=== PATIENT | female | born 1955 | race Caucasian/White ===

== ENCOUNTER 2025-02-04 10:25 | Outpatient (AMB) | payer MEDICARE, SELFPAY ==
--- NOTE | 2025-02-04 10:31 | MHC.PC.OV ---
Vital Signs 02/04/25 10:45 Height 5 ft 3 in Weight 125 lb 8 oz BMI 22.2 BP 140/84 H Blood Pressure Location Lt brachial Position Sitting Pulse 68 Pulse Source Pulse Oximeter Temp 98.6 F Temp Source Temporal Artery Scan Pulse Oximetry (%) 98 Oxygen Delivery Method Room Air Intake Visit Reasons: New Appt New Patient requesitng an PE Intake Note: Mandi presents in the office today to establish care. Allergies perfume Allergy (Verified 02/04/25 10:35) Rash Tobacco use date assessed: 02/04/25 Fall risk assessment: No Falls in past year Last assessed Fall Risk: 02/04/25 Dental Screening Dental Screen Date: 02/04/25 Did you have a dental visit in the last 12 months?: Yes Did you have a dental problem in the last 6 months where you did not have access to dental care?: No Was dental information given to patient?: Patient has dentist HPI HPI Comments History of Present Illness Details This is a 69-year-old female with a past medical history of hyperlipidemia, hypertension and tobacco use presenting to establish care. Hypertension-previously treated with amlodipine 10 mg daily. She ran out of the medication 3 weeks ago. Her blood pressure today is 140/84. Denies headaches, chest pain, dizziness or shortness of breath. Hyperlipidemia-treated with atorvastatin 20 mg daily. No recent lipid profile. Hypercalcemia-10.7 on labs from [place] May 2024. She takes vitamin D3 daily and calcium daily. Tobacco use-smokes 1-1/2 packs per day. She has gone through counseling groups, seen addiction Medicine and tried medications including Chantix which she currently has a home. She is not currently interested in quitting. We also discussed baseline chest x-ray and LDCT, but she is not interested in screening tests at this time. Patient had a DEXA scan in September or October 2024, and she was never told the results. We have requested it. She endorses a history of osteoporosis. Last mammogram normal October 2024. She had her last colonoscopy 01/11/2023 at [facility]. She says it was normal, and she was instructed to repeat it in 10 years. Patient said she saw her eye doctor recently about some vision issues that were occurring once per week over the winter. For 1-5 minutes it felt like 1 of her eyes was positioned half an inch above the other, but when she shut each eye individually her vision was fine. She had no other symptoms or neurologic deficits associated with this, and episodes always self resolved. She has not had any episodes since November. She had a flu shot in May 2024. She is up-to-date with COVID-19 vaccine, per patient. Patient reports she had a tetanus shot in 2017. She also says she is up-to-date with the shingles vaccine and pneumonia vaccine. She requests a screening for hepatitis-C since it was listed on her health maintenance plan from [facility]. The patient takes citalopram 20 mg daily for depression. This was started after she lost her . Declines annual gynecologic exam. ROS: Constitutional: No unexplained weight loss, fever, chills, fatigue or night sweats. Eyes: No blurry vision, vision loss, double vision, eye pain, eye redness, eye discharge. See HPI ENT: No hearing loss, sneezing, congestion, runny nose or sore throat. Respiratory: No shortness of breath, cough or sputum production. Cardiovascular: No chest pain, chest pressure or chest discomfort. No palpitations or pedal edema. Gastrointestinal: No anorexia, nausea, vomiting or diarrhea. No abdominal pain or blood in stool. Neurologic: No headache, dizziness, syncope, unilateral weakness, ataxia, numbness or tingling in the extremities. No memory difficulties or changes to speech. Hematologic/Lymphatics: No bleeding or bruising. No painful lymph nodes. Endocrine: No cold or heat intolerance. No polyuria or polydipsia. Psychiatric: No depression or anxiety. Physical exam: Constitutional: Alert, in no distress. Head: Normocephalic. Eyes: Pupils are equal, round and reactive to light. Extraocular muscles intact. Ear, Nose and Throat: Canals clear. TMs normal. Normal nasal mucosa. No nasal discharge. No oral lesions. Neck: Supple, Full range of motion. No lymphadenopathy. Respiratory: Clear to auscultation. Cardiovascular: S1 S2 regular. No murmurs. No carotid bruits. Gastrointestinal: Abdomen soft, non-tender, non-distended. Normal bowel sounds. No palpable masses. Neurologic:?Alert and oriented x 3, no focal deficits observed, CN 2-12 intact, [id number]-[id number] normal, sensation equal and symmetric, strength UE and LE 5/5 bilaterally, reflexes equal and symmetric.? Normal gait.? Patient able to heel walk, toe walk and walk heel-to-toe across the floor.? No pronator drift.? Negative Romberg. Musculoskeletal: No gross deformities. Normal range of motion. Extremities: Warm and well perfused. No clubbing, cyanosis or edema. Psychiatric: Normal mood and affect [facility] Medical History (Updated 02/04/25 @ 13:50 by RIGOBERTO Eastman) Depression Osteoporosis Transient vision disturbance Tobacco use disorder Hyperlipidemia Hypertension Hypercalcemia Family History (Updated 02/04/25 @ 10:45 by Emely Mccrary MA) Father Substance abuse Alcoholism Maternal Uncle Alcoholism Social History (Updated 02/04/25 @ 10:45 by Emely Mccrary MA) Housing: House Alcohol intake: current Patient Tobacco Use Status: Current everyday Tobacco user Tobacco use type: Cigarette Cigarette Packs Per Day: 2 Cigarettes Per Day: 30 Years Smoked: 50 e-Cigarette/Vaping Use: Never Used Second Hand Smoke Exposure: Yes service: No Current occupational status: retired Current occupational exposures/hazards: No Cognitive needs: No Hearing needs: No Vision needs: No Questionnaire PHQ-9 Over the last 2 weeks, how often have you been bothered by any of the following problems? 1. Little interest or pleasure in doing things: not at all 2. Feeling down, depressed, or hopeless: several days 3. Trouble falling or staying asleep, or sleeping too much: not at all 4. Feeling tired or having little energy: not at all 5. Poor appetite or overeating: not at all 6. Feeling bad about yourself - or that you are a failure or have let yourself or your family down: not at all 7. Trouble concentrating on things, such as reading the newspaper or watching television: not at all 8. Moving or speaking so slowly that other people could have noticed. Or the opposite - being so fidgety or restless that you have been moving around a lot more than usual: not at all 9. Thoughts that you would be better off or of hurting yourself in some way: not at all Total score: 1 Depression Screening Interpretation: Negative Depression Screening Done: Yes 92742 - PHQ-9 Billing: Yes Source: Developed by Drs. Sonny Valentin, ShalondaRodriguez Ahmadi and colleagues, with an educational yani from [employer]. Thrive Questionnaire Date Thrive assessed: 02/04/25 I am a: Patient What is your living situation today?: I have a steady place to live Within the past 12 months, did the food you bought not last and you didn't have the money to get more?: Never true Within the past 12 months, did you worry whether your food would run out before you got money to buy more?: Never true Do you have trouble paying for medicines?: No Do you have trouble getting transportation to medical appointments?: No Do you have trouble paying your heating and electricity bill?: No Do you have trouble taking care of your child, family member or friend?: No Do you have trouble with day-to-day activities such as bathing, preparing meals, shopping, managing finances, etc.?: No Are you currently unemployed and looking for a job?: No Are you interested in more education?: No Please select the resources that you would like help with: None Currently or been in a relationship where the following occur: No concerns reported THRIVE Score: 0 AUDIT C Alcohol Use Questionnaire (AUDIT-C) 1. How often do you have a drink containing alcohol?: 2-4 times a month 2. How many drinks containing alcohol do you have on a typical day when you are drinking?: 5 or 6 3. How often do you have six or more drinks on one occasion?: Less than monthly Total Score: 5 Score Reviewed/Action Taken: No DUANE-7 AMB Questionnaire DUANE-7 Date DUANE - 7 assessed: 02/04/25 Feeling nervous, anxious, or on edge: 1 = Several days Not being able to stop or control worryin = Not at all Worrying too much about different things: 1 = Several days Trouble relaxin = Not at all Being so restless that it is hard to sit still: 0 = Not at all Becoming easily annoyed or irritable: 0 = Not at all Feeling afraid as if something awful might happen: 1 = Several days Total DUANE-7 score (0-4 normal; 5-9 mild; 10-14 moderate; 15-21 severe): 3 Source: Developed by Shalonda Roche Kurt Kroenke and colleagues, with an educational yani from [employer]. DUANE-7 Assessment Billing DUANE-7 Assessment Tool: DUANE-7 Assessment 12215 Physical exam (Primary Care) Vital Signs: Last Vital Signs Temp 98.6 F 02/04/25 10:45 Pulse 68 02/04/25 10:45 BP 140/84 H 02/04/25 10:45 Pulse Ox 98 02/04/25 10:45 Oxygen Delivery Method Room Air 02/04/25 10:45 BMI result Body Mass Index 22.2 Tobacco/Smoking Status: Tobacco use Status Tobacco use date assessed 02/04/25 02/04/25 10:49 Patient Tobacco Use Status Current everyday Tobacco 02/04/25 10:49 Tobacco use type Cigarette 02/04/25 10:49 e-Cigarette/Vaping Use Never Used 02/04/25 10:49 PHQ-9: PHQ-9 Score PHQ-9: Total score 1 02/04/25 10:52 Depression Screening Interpretation: Negative Thrive Assessment: Date of Thrive Assessment Date Thrive assessed 02/04/25 02/04/25 10:34 Currently or been in a relationship where the following occur: No concerns reported Coding Level of Care Code New Pt Level 4 (55176) Complex EM visit Add On G2211 Diagnoses Hypercalcemia E83.52 Hypertension I10 Hyperlipidemia E78.5 Tobacco use disorder F17.200 Transient vision disturbance H53.9 Osteoporosis M81.0 Depression F32.A Additional Codes DUANE-7 Assessment Billing - UDANE-7 Assessment Tool: DUANE-7 Assessment 35633 ([id number]) PHQ-9 - 34447 - PHQ-9 Billing: Yes ([id number]) Assessment & Plan Assessment & Plan (1) Hypercalcemia: Code(s): E83.52 - Hypercalcemia Category: Medical Plan: Check PTH, vitamin-D and calcium. (2) Hypertension: Code(s): I10 - Essential (primary) hypertension Category: Medical Plan: Resume amlodipine at 5 mg daily. Recheck in 4 weeks. Recommended low-sodium diet and avoidance of caffeine. Smoking cessation advised. Check renal function and urinalysis. (3) Hyperlipidemia: Code(s): E78.5 - Hyperlipidemia, unspecified Category: Medical Plan: Continue atorvastatin and check lipid profile. (4) Tobacco use disorder: Code(s): F17.200 - Nicotine dependence, unspecified, uncomplicated Category: Medical Plan: Reviewed the risks of tobacco use disorder. She is not interested in cessation at this time though she has attempted it multiple times in the past. She is not interested in baseline chest x-ray or LDCT. (5) Transient vision disturbance: Code(s): H53.9 - Unspecified visual disturbance Category: Medical Plan: She has had no further episodes since November but I recommended an MRI of the brain since she did have them repeatedly over the winter. She saw her eye doctor and no cause was determined. Patient declines imaging at this time. If she has another episode she will contact the office. Warning signs warranting ER evaluation reviewed with the patient. (6) Osteoporosis: Code(s): M81.0 - Age-related osteoporosis without current pathological fracture Category: Medical Plan: I have requested the results of her bone density exam. Smoking cessation advised. Continue weight-bearing activity. She walks her dog frequently. She is on calcium and vitamin-D. (7) Depression: Code(s): F32.A - Depression, unspecified Category: Medical Plan: Stable. Continue citalopram. Plan Follow up in 4 weeks. Orders: Orders Comprehensive Met. Panel Today E78.5 - Hyperlipidemia, unspecified, E83.52 - Hypercalcemia, F17.200 - Nicotine dependence, unspecified, uncomplicated, I10 - Essential (primary) hypertension Complete Blood Count no Diff Today E78.5 - Hyperlipidemia, unspecified, E83.52 - Hypercalcemia, F17.200 - Nicotine dependence, unspecified, uncomplicated, I10 - Essential (primary) hypertension UA w Microscopic Today R39.9 - Unspecified symptoms and signs involving the genitourinary system Lipid Panel Today E78.5 - Hyperlipidemia, unspecified, E83.52 - Hypercalcemia, F17.200 - Nicotine dependence, unspecified, uncomplicated, I10 - Essential (primary) hypertension Vitamin D 25-OH (D2 and D3) Today E78.5 - Hyperlipidemia, unspecified, E83.52 - Hypercalcemia, F17.200 - Nicotine dependence, unspecified, uncomplicated, I10 - Essential (primary) hypertension, M85.80 - Other specified disorders of bone density and structure, unspecified site Parathyroid Hormone Intact Today E78.5 - Hyperlipidemia, unspecified, E83.52 - Hypercalcemia, F17.200 - Nicotine dependence, unspecified, uncomplicated, I10 - Essential (primary) hypertension Hepatitis C Antibody Today Z20.2 - Contact with and (suspected) exposure to infections with a predominantly sexual mode of transmission Medications: New atorvastatin 20 mg PO DAILY 90 tabs 3RF amlodipine 5 mg PO DAILY 90 tabs 3RF
[2025-02-04 10:45] VITALS: BP 140/84; PULSE 68; TEMP 37; O2SAT 98; BMI 22.2
--- OUTSIDE RECORDS SUMMARY | 2025-02-04 10:57 | XMS_ITS | Encounter Summary ---
Author Organization [facility] Address [address] [place] [address] Care Team Providers Care Rouge Presser Name Role Phone ChildAlessandro MD Primary Care Provider [phone] Encounter Details Date Type Department Care Team (Latest Contact Info) Description 07/22/2020 Transcribe Orders [facility] Professional Office Building Lab Draw Site [address] [place] [address] Child, Alessandro Guy MD [address] [place] [phone] (Work) Exposure to SARS-associated coronavirus (Primary Dx) Social History Tobacco Use Types Packs/Day Years Used Date Smoking Tobacco: Every Day Cigarettes Smokeless Tobacco: Never Comments::1/2 PPD Alcohol Use Standard Drinks/Week Comments Not Currently 0 (1 standard drink = 0.6 oz pur e alcohol) Comments No Sex and Gender Information Value Date Recorded Sex Assigned at Female 09/28/2021 2:46 PM EST Legal Sex Female 12:25 AM EDT Gender Identity Female 09/28/2021 2:46 PM EST Sexual Orientation Straight 09/28/2021 2: 46 PM EST documented as of this encounter Plan of Treatment Not on file documented as of this encounter Results * Due to [place] state law, this organization might not be sharing negative HIV tests. * COVID-19 PCR, AIRLINE RESERVATION AGENT/OP/Saliva (07/22/2020 2:16 PM EST) SARS CoV 2 RNA, RT PCR Not Detected Not Detected 07/23/2020 10:27 AM EST [facility] Comment:A Not Detected (Nega tive) test result is indicative of the absence of SARS-CoV-2 RNA at the level of LoD (Limit of Detection). A negative result does not rule out the possibility of COVID-19 and should not be used as the sole basis for treatment or patient management decisions. If COVID-19 is still suspected, based on exposure history together with other clinical findings, re-testing should be considered. Saliva Mouth region structure / Unknown Non-Blood Collection / Unknown 07/22/2020 2:16 PM EST 07/22/2020 2:17 PM EST Narrative [facility] - 07/23/2020 10:27 AM EST These tests were developed, validated, and their performance characteristics determined by the [facility] Laboratory at [facility] under CLIA [id number]. They have not been cleared or approved by the U.S. Food and Drug Administration (FDA). FDA Policy for Diagnostic Tests for Coronavirus Disease-2019 during the Public Health Emergency issued November 30, 2019, is followed. us Alessandro Russo MD LAB BODY FLUIDS AND STOOLS OR DERABLES Final Result [facility] [address] [place] [address], documented in this encounter Visit Diagnoses Diagnosis Exposure to SARS-associated coronavirus- Primary documented in this encounter Additional Health Concerns Infection Onset Date Last Indicated Resolved Time COVID-19 - Suspected infection 07/22/2020 07/22/2020 07/23/2020 10:27 AM EST documented as of this encounter Care Teams Rouge Presser Relationship Specialty Start Date End Date Alessandro Russo MD [phone] (Work) PCP - General 04/03/17 documented as of this encounter
--- OUTSIDE RECORDS SUMMARY | 2025-02-04 10:57 | XMS_ITS | Encounter Summary ---
Author Organization [facility] Address [address] [place] [address] Care Team Providers Care Administrative Asst Name Role Phone ChildAlessandro MD Primary Care Provider [phone] Encounter Details Date Type Department Care Team (Late st Contact Info) Description 11/01/2022 Community Orders [facility] EpicCare Link [address] [place] [address] Child, Alessandro Guy MD [address] [place] [phone] (Work) Bilateral hip pain (Primary Dx) Social History Tobacco Use Types [...] of this encounter Results * Due to [place] state law, this organization might not be sharing negative HIV tests. * X-Ray Lumbar Spine 2 or 3 Views (11/01/2022 11:27 AM EST) Anatomical Region Laterality Modality Spine, L-spine Computed Radiogr aphy 11/02/2022 1:24 PM EST Impressions 11/02/2022 1:49 PM EST Lumbar spine: Severe left convex curvature. Moderate to severe multilevel degenerative disc disease and lower lumbar facet arthropathy. Osteopenia. ??Chronic appearing L1 superior endplate compression fracture. Pelvis/hips: Mild osteoarthritis of the hips. Mild degenerative arthropathy of the pubic symphysis and sacroiliac joints. No visible fracture. ??Unremarkable soft tissues. If this radiology report contains a blank impression section, it is an incomplete radiology report. ??Please contact the interpreting radiologist or applicable radiology division as soon as possible to obtain the completed interpretation. ? Workstation ID: [id number] Narrative 11/02/2022 1:49 PM EST COMPARISON: No pertinent prior studies available at time of dictation. FINDINGS AND Resulting Agency Comment [id number] Procedure Note Neville Yadav MD - 11/02/2022 COMPARISON: No pertinent prior studies available at time of dictation. FINDINGS AND IMPRESSION: Lumbar spine: Severe left convex curvature. Moderate to severe multilevel degenerative disc disease and lower lumbarfacet arthropathy. Osteopenia. Chronic appearing L1 superior endplate compressionfracture. Pelvis/hips: Mild osteoarthritis of the hips. Mild degenerative arthropathy of the pubic symphysis and sacroiliacjoints. No visible fracture. Unremarkable soft tissues. If this radiology report contains a blank impression section, it is anincomplete radiology report. Please contact the interpreting radiologistor applicable radiology division as soon as possible to obtain thecompleted interpretation. Workstation ID: [id number] Alessandro Russo MD IMG XR PROCEDURES Final Resul t documented in this encounter Visit Diagnoses Diagnosis Bilateral hip pain- Primary Pain in joint, pelvic region and thigh Bilateral hip pain Pain in joint, pelvic region and thigh documented in this encounter Care Teams Administrative Asst Relationship Specialty Start Date End Date Alessandro Russo MD [phone] (Work) PCP - General 04/03/17 documented as of this encounter
--- OUTSIDE RECORDS SUMMARY | 2025-02-04 10:57 | XMS_ITS | Encounter Summary ---
Author Organization [facility] Address [address] [place] [address] Care Team Providers Care Pin Chaser Name Role Phone Alessandro Russo MD Primary Care Provider [phone] Encounter Details Date Type Department Care Team (Late st Contact Info) Description 08/06/2023 Community Orders [facility] EpicCare Link [address] [place] [address] Alessandro Russo MD [address] [place] [phone] (Work) Screening mammogram for breast cancer (Primary Dx) Social History Tobacco Use Types [...] as of this encounter Plan of Treatment Scheduled Orders Name Type Priority Associated Diagnoses Orde r Schedule TORSTEN Bilateral Screening Digital Mammogram With [facility] Routine Screening mammogram for breast cancer Expected: 04/10/2024, Expires: 08/20/2025 documented as of this encounter Visit Diagnoses Diagnosis Screening mammogram for breast cancer- Primary documented in this encounter Care Teams Pin Chaser Relationship Specialty Start Date End Date Alessandro Russo MD [phone] (Work) PCP - General 04/03/17 documented as of this encounter
--- OUTSIDE RECORDS SUMMARY | 2025-02-04 10:57 | XMS_ITS | Encounter Summary ---
Author Organization [facility] Address [address] [place] [address] Care Team Providers Care Enlisted Advisor Name Role Phone Alessandro Russo MD Primary Care Provider [phone] Encounter Details Date Type Department Care Team (Late st Contact Info) Description 02/26/2022 Community Orders [facility] EpicCare Link [address] [place] [address] Alessandro Russo MD [address] [place] [phone]) Screening mammogram for breast [...] on file documented as of this encounter Visit Diagnoses Diagnosis Screening mammogram for breast cancer- Primary documented in this encounter Care Teams Enlisted Advisor Relationship Specialty Start Date End Date Alessandro Russo MD [phone] (Work) PCP - General 04/03/17 documented as of this encounter
--- OUTSIDE RECORDS SUMMARY | 2025-02-04 10:57 | XMS_ITS | Encounter Summary ---
Author Organization [facility] Address [address] [place] [address] Care Team Providers Care Mess Attendant Name Role Phone Alessandro Russo MD Primary Care Provider [phone] Encounter Details Date Type Department Care Team (Late st Contact Info) Description 04/16/2023 Community Orders [facility] EpicCare Link [address] [place] [address] Alessandro Russo MD [address] [place] [phone]) Screening mammogram for breast [...] Routine Screening mammogram for breast cancer Expected: 04/16/2024, Expires: 04/30/2025 documented as of this encounter Visit Diagnoses Diagnosis Screening mammogram for breast cancer- Primary documented in this encounter Care Teams Mess Attendant Relationship Specialty Start Date End Date Alessandro Russo MD [phone] (Work) PCP - General 04/03/17 documented as of this encounter
--- OUTSIDE RECORDS SUMMARY | 2025-02-04 10:57 | XMS_ITS | Referral Summary ---
Author Organization [facility] Address [address] [place] [address] Care Team Providers Care Gasket Supervisor Name Role Phone Child, Alessandro Guy Primary Care Provider [phone] Allergies No known active allergies Medications amLODIPine (NORVASC) 10 mg tablet Take 10 mg by mouth daily. 8 Active cyclobenzaprine (FLEXERIL) 5 mg tablet Take 1 tablet (5 mg total) by mouth 3 times a day as needed for muscle spasms. 4 tablet 3 Active lidocaine (LIDODERM) 5% patch Apply 1 patch topically to the affected area once a day. Remove and discard patch within 12 hours or as directed. 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 Immunizations Immunization Administration Dates Next Due Covid-19, Pfizer, mRNA, Stearns valent, PF 30 mcg/0.3 mL dose (for ages 12 and older) 12/30/2020,12/02/2020 Social History Tobacco Use Types Packs/Day Years [...] Orientation Straight 09/28/2021 2: 46 PM EST Last Filed Vital Signs Vital Sign Reading Time Taken Comments Blood Pressure 160/86 10/01/2022 11:19 AM EST Pulse 74 10/01/2022 11:19 AM EST Temperature 36.3 ??C (97.3 ??F) 10/01/2022 11:[address] Respiratory Rate 20 10/01/2022 11:19 AM EST Oxygen Saturation 98% 10/01/2022 11:19 AM EST Inhaled Oxygen Concentration - - Weight 59.9 kg (132 lb) 10/01/2022 11:19 AM EST Height 163.8 cm (5' 4.5 ) 04/08/2020 9:01 AM EDT Body Mass Index 22.31 04/08/2020 9:01 AM EDT Plan of Treatment Not on file Procedures * Due to [place] [employer] law, this organization might not be sharing negative HIV tests. Procedure Name Priority Date/Time Associated Diagnosis Comments TORTSEN BILATERAL SCREENING DIGITAL MAMMOGRAM WITH MASON Routine 04/09/2023 1:44 PM EDT Breast cancer screening by mammogram DEXA BONE DENSITY AXIAL Routine 08/02/2022 11:33 AM EST Other osteoporosis, unspecified pathological fracture presence Post-menopausal from Last 3 Months or Most Recently Relevant to Health Maintenance Results * Due to [place] Doubl[employer] law, this organization might not be sharing negative HIV tests. * TORSTEN Bilateral Screening Digital Mammogram With Mason (04/09/2023 1:44 PM EDT) Anatomical Region Laterality Modality Breast Bilateral Mammography Narrative 04/13/2023 2:03 PM EDT EXAMINATION TORSTEN Bilateral Screening Digital Mammogram With Mason. INDICATION Screening. CC and MLO views were obtained. R2 CAD was used in the interpretation of this study. COMPARISON Multiple priors in PACS. Bilateral Breast Findings: The breasts are heterogeneously dense, which may obscure small masses. No suspicious dominant masses, unexplained areas of architectural distortion or suspicious grouped calcifications are seen in either breast. IMPRESSION No specific evidence of malignancy. BI-RADS?? ATLAS category (overall): 1 - Negative MANAGEMENT Recommend annual screening mammography. The patient was entered into a reminder system with a target date for their next mammogram. If this radiology report contains a blank impression section, it is an incomplete radiology report. ??Please contact the interpreting radiologist or applicable radiology division as soon as possible to obtain the completed interpretation. us Alessandro Russo MD IMSteve BI PROCEDURES Final Resul t * Dexa bone density Axial (08/02/2022 11:33 AM EST) Anatomical Region Laterality Modality Hip, L-spine Bone Densitometr y 08/02/2022 11:4 6 AM EST Impressions 08/02/2022 11:47 AM EST This patient has osteoporosis. Compared to the prior study, there has beenno changein the BMD/T value of the spine andan increasein the BMD /T value of the total hip. Consider bone health evaluation and management by Endocrinology or Rheumatology. Thank you for the courtesy of this referral. Yared Shrestha MD, PhD If this radiology report contains a blank impression section, it is an incomplete radiology report. ??Please contact the interpreting radiologist or applicable radiology division as soon as possible to obtain the completed interpretation. ? Workstation ID: [id number] Narrative 08/02/2022 11:47 AM EST EXAM: ??BONE MINERAL DENSITY INDICATION: ??67year old post-menopausal female with estrogen deficiency. PROCEDURE: The bone mineral density (BMD) of the spine and proximal left femur was determined using an external X-ray source Hologic. COMPARISON: Prior BMD of 11/11/2012 FINDINGS: L1-L4: ??BMD 0.940gm/cm2 ? T-Score -1.0 ?Z-score 1.0 ? Prior BMD(T) 0.928 Femoral neck: ??BMD 0.410gm/cm2 ?T-Score -4.0 ? Z-score: -2.3 ? Prior BMD(T) NA Total hip: ??BMD 0.742gm/cm2 ?T-Score -1.6 ?Z-score -0.2 ? Prior BMD(T) 0.665 The World Health Organization (WHO) defines osteoporosis (as studied in post-menopausal women) as a T value of (-)2.5 or less at any site. ??Osteopenia is defined by a T value between (-)1.0 and (-)2.4. In general, it is recommended that patients receive approximately 1000 mg of calcium daily, either from dairy products or supplements (including multiple vitamin). Patients should consider supplementing with vitamin D. Vitamin D recommendations should be discussed with Health Care Provider and measurement of vitamin D levels should be considered. Careful weight-bearing exercise is also useful in maintaining bone mass and to help protect against falls. Based on our precision data, a change of 1.5% in the spine or total hip is significant in the individual patient. Resulting Agency Comment [id number] Procedure Note Yared Shrestha MD PhD - 08/02/2022 EXAM: BONE MINERAL DENSITY INDICATION: 67year old post-menopausal female with estrogen deficiency. PROCEDURE: The bone mineral density (BMD) of the spine and proximal leftfemur was determined using an external X-ray source Hologic. COMPARISON: Prior BMD of 11/11/2012 FINDINGS: L1-L4: BMD 0.940gm/cm2 T-Score -1.0 Z-score 1.0 Prior BMD(T)0.928 Femoral neck: BMD 0.410gm/cm2 T-Score -4.0 Z-score: -2.3 PriorBMD(T) NA Total hip: BMD 0.742gm/cm2 T-Score -1.6 Z-score -0.2 PriorBMD(T) 0.665 The World Health Organization (WHO) defines osteoporosis (as studied inpost-menopausal women) as a T value of (-)2.5 or less at any site.Osteopenia is defined by a T value between (-)1.0 and (-)2.4. In general, it is recommended that patients receive approximately 1000 mgof calcium daily, either from dairy products or supplements (includingmultiple vitamin). Patients should consider supplementing with vitamin D.Vitamin D recommendations should be discussed with Health Care Providerand measurement of vitamin D levels should be considered. Carefulweight-bearing exercise is also useful in maintaining bone mass and tohelp protect against falls. Based on our precision data, a change of 1.5% in the spine or total hip issignificant in the individual patient. IMPRESSION: This patient has osteoporosis. Compared to the prior study, there has beenno changein the BMD/T value ofthe spine andan increasein the BMD /T value of the total hip. Consider bone health evaluation and management by Endocrinology orRheumatology. Thank you for the courtesy of this referral. Yared Shrestha MD, PhD If this radiology report contains a blank impression section, it is anincomplete radiology report. Please contact the interpreting radiologistor applicable radiology division as soon as possible to obtain thecompleted interpretation. Workstation ID: [id number] Alessandro Russo MD IMG DXA PROCEDURES Final Resu lt from Last 3 Months or Most Recently Relevant to Health Maintenance Insurance MEDICARE Advance Directives Documents on File Type Date Recorded Patient Winch Operator Expl anation Health Care Proxy 08/21/2021 11:12 AM 07-17 Care Teams Gasket Supervisor Relationship Specialty Start Date End Date Child, Alessandro Guy MD [phone] (Work) [facility] - General 04/03/17
--- OUTSIDE RECORDS SUMMARY | 2025-02-04 10:57 | XMS_ITS | Clinical Summary ---
Author Organization [facility] Address [address] [place] [address] Care Team Providers Care Stock Holder Name Role Phone Child, Alessandro Guy Primary Care Provider [phone] Allergies No known active allergies Medications amLODIPine [...] Administration Dates Next Due Covid-19, Pfizer, mRNA, Yancey valent, PF 30 mcg/0.3 mL dose (for [...] 04/08/2020 9:01 AM EDT Plan of Treatment Health Maintenance Due Date Last Done Comments Cologuard 1954 Colon Cancer Screening 1954 Colonoscopy 1954 FOBT / Fit Test 1954 Hepatitis C Screening 1954 Sigmoidoscopy 1954 Medicare AWV 1955 Pneumococcal Vaccine: 50+ Years (1 of 2 - PCV) 1973 DTaP,Tdap,and Td Vaccines (1 - Tdap) 1976 CT Lung Cancer Screening (Baseline) 2004 Zoster Vaccines (2 of 3) 03/04/2015 01/07/2015 COVID-19 Vaccine (5 - season) 2024 04/13/2022, 09/05/2021, 12/30/2020, Additional history exists Alcohol/Substance Use Screening 09/16/2024 Depression Screening and Follow-Up 09/16/2024 Health Care Proxy Review 09/16/2024 Social Drivers of Health Annual Screening 09/16/2024 Mammogram 04/09/2025 04/09/2023, 03/17, 07/04/2020, Additional history exists Influenza Vaccine (Season Ended) 2025 06/26/2022, 07/08/2021, 07/11/2019, Additional history exists RSV Vaccine (60+ years old and patients) (1 - 1-dose 75+ series) 2029 Osteoporosis Screening Completed 2, 05/28/2019, , Additional history exists Hepatitis B Vaccines Aged Out No long er eligible based on patient's age to complete this topic Procedures * Due to [facility] law, this organization might not be sharing negative HIV tests. Procedure Name Priority Date/Time Associated Diagnosis Comments TORSTEN BILATERAL SCREENING DIGITAL MAMMOGRAM WITH MASON Routine 04/09/2023 1:44 PM EDT Breast cancer screening by mammogram DEXA BONE DENSITY AXIAL Routine 08/02/2022 11:33 AM EST Other osteoporosis, unspecified pathological fracture presence Post-menopausal from Last 3 Months or Most Recently Relevant to Health Maintenance Results * Due to [place] [employer] law, this organization might not be sharing [...] as possible to obtain the completed interpretation. Alessandro Russo MD IMSteve BI PROCEDURES Final [...] obtain the completed interpretation. ? Workstation ID: [id number] Narrative 08/02/2022 11:47 AM EST EXAM: ??BONE [...] in the individual patient. Resulting Agency Comment [id number] Procedure Note Yared Shrestha MD PhD - [...] possible to obtain thecompleted interpretation. Workstation ID: [id number] Alessandro Russo MD IMG DXA PROCEDURES Final Resu lt from Last 3 Months or Most Recently Relevant to Health Maintenance Insurance MEDICARE Advance Directives Documents on File Type Date Recorded Patient Computing Tutor Expl anation Health Care Proxy 08/21/2021 11:12 AM 07-17 Care Teams Stock Holder Relationship Specialty Start Date End Date Karan, Alessandro Guy MD [phone] (Work) PCP - General 04/03/17
== END 2025-02-04 11:32 | disposition home or self-care (01) ==
LOC: HO.HMCFM 10:26
PROVIDERS: PCP Physician Assistant Medical; Visit Provider Physician Assistant Medical
DX: E83.52 Hypercalcemia (principal); I10 Essential (primary) hypertension; E78.5 Hyperlipidemia, unspecified; F17.200 Nicotine dependence, unspecified, uncomplicated; H53.9 Unspecified visual disturbance; M81.0 Age-related osteoporosis without current pathological fracture; F32.A Depression, unspecified

== ENCOUNTER → 2025-02-04 10:25 | Outpatient (BNVA) | payer MEDICARE, SELFPAY | PROVIDERS: PCP Physician Assistant Medical; Visit Provider Physician Assistant Medical | DX: E83.52 Hypercalcemia (principal); I10 Essential (primary) hypertension; E78.5 Hyperlipidemia, unspecified; H53.9 Unspecified visual disturbance; M81.0 Age-related osteoporosis without current pathological fracture; F32.A Depression, unspecified; F17.200 Nicotine dependence, unspecified, uncomplicated; Z79.899 Other long term (current) drug therapy | CPT/HCPCS: 96127; 99202 ==

== ENCOUNTER 2025-03-02 10:33 | Outpatient (REF) | payer MEDICARE, SELFPAY ==
--- OUTSIDE RECORDS SUMMARY | 2025-03-02 12:05 | XMS_ITS | Encounter Summary ---
Author Organization [facility] Address [address] [place] [address] Care Team Providers Care Marble And Granite Polisher Name Role Phone ChildAlessandro MD Primary Care Provider [phone] Encounter Details Date Type Department Care Team (Late st Contact Info) Description 11/01/2022 Community Orders [facility] EpicCare Link [address] [place] [address] Child, Alessandro Guy MD [address] [place] [address] [phone] (Work) Bilateral hip pain (Primary [...] of this encounter Results * Due to [place] state law, this organization might not be [...] obtain the completed interpretation. ? Workstation ID: [id number] Narrative 11/02/2022 1:49 PM EST COMPARISON: No pertinent prior studies available at time of dictation. FINDINGS AND Resulting Agency Comment [id number] Procedure Note Neville Yadav MD - 11/02/2022 [...] possible to obtain thecompleted interpretation. Workstation ID: [id number] Alessandro Russo MD IMG XR PROCEDURES Final Resul t documented in this encounter Visit Diagnoses Diagnosis Bilateral hip pain- Primary Pain in joint, pelvic region and thigh Bilateral hip pain Pain in joint, pelvic region and thigh documented in this encounter Care Teams Marble And Granite Polisher Relationship Specialty Start Date End Date Alessandro Russo MD [phone] (Work) PCP - General 04/03/17 documented as of this encounter
[2025-03-02 14:13] LABS: Appearance Urine Clear; Color Urine Yellow; Glucose Urine UA Negative (Negative); Leukocyte Esterase Urine Negative (Negative); Nitrite Urine Negative (Negative); PH 7.5 (5.0-9.0); Specific Gravity - Urine <= 1.005 (1.005-1.025); Urine Blood Negative (Negative); Urine Ketones Negative (Negative); Urine Protein Negative (Neg-Trace)
[2025-03-02 14:15] LABS: Bacteria Urine None Seen (None Seen); Hyaline Casts Urine 0-2 /LPF (0-2); RBC Urine 0-2 /HPF (0-2); Squamous Epithelial Cell Urine 0-2 /HPF (0-2); WBC Urine 0-5 /HPF (0-5)
[2025-03-02 14:34] LABS: Hematocrit 38.5 % (37.0-47.0); Hemoglobin 12.7 g/dl (12.0-16.0); Mean Corpuscular Hemoglobin 30.1 pg (27.0-33.0); Mean Corpuscular Volume 91.2 fL (80.0-98.0); Mean Platelet Volume 10.8 fL (9.4-12.3); Platelet Count 230 X10*3/uL (160-400); Red Blood Count 4.22 X10*6/uL (4.20-5.50); Red Cell Distribution Width 13.3 % (11.0-16.0); White Blood Count 6.7 X10*3/uL (4.8-10.8)
[2025-03-02 14:52] LABS: Alanine Aminotransferase 20 U/L (0-31); Albumin Level 4.5 g/dL (3.5-5.0); Alkaline Phosphatase 47 U/L (39-117); Anion Gap 10 (12-20); Aspartate Amino Transferase 23 U/L (5-31); Bilirubin Total 0.4 mg/dL (0.0-1.0); Blood Urea Nitrogen 11 mg/dL (9-16); Calcium 10.2 mg/dL (8.4-10.2); Carbon Dioxide 28 mmol/L (22-29); Chloride 106 mmol/L (96-108); Cholesterol 149 mg/dL (<200); Estimated Glomerular Filt Rate > 60; Glucose Random 98 mg/dL (60-115); HDL Cholesterol 56 mg/dL (>40); LDL Cholesterol Calculated 81 mg/dL (<100); Potassium 3.9 mmol/L (3.3-5.1); Sodium 140 mmol/L (135-145); Total Protein 6.6 g/dL (6.5-8.0); Triglycerides 64 mg/dL (<150)
[2025-03-02 15:05] LABS: Parathyroid Hormone Intact 63.5 pg/mL (8.7-77.1)
[2025-03-03 06:05] LABS: ~HepC Num1 0.09 S/CO (0.00-0.79); ~Hepatitis C Antibody Nonreactive (Nonreactive)
[2025-03-05 18:37] LABS: Vitamin D 25-OH, D2 <4 ng/mL; Vitamin D 25-OH, D3 47 ng/mL; Vitamin D 25-OH, Total 47 ng/mL (30-100)
== END 2025-03-02 10:34 | disposition home or self-care (01) ==
LOC: HO.WFDLDS 10:33
PROVIDERS: Visit Provider Physician Assistant Medical
DX: Z20.2 Contact with and (suspected) exposure to infections with a predominantly sexual mode of transmission (principal); M85.80 Other specified disorders of bone density and structure, unspecified site; R39.9 Unspecified symptoms and signs involving the genitourinary system; F17.200 Nicotine dependence, unspecified, uncomplicated; E78.5 Hyperlipidemia, unspecified; E83.52 Hypercalcemia; I10 Essential (primary) hypertension
CPT/HCPCS: 36415; 80053; 80061; 81001; 82306; 83970; 85027; 86803

== ENCOUNTER 2025-03-18 11:49 | Outpatient (AMB) | payer MEDICARE, SELFPAY ==
--- NOTE | 2025-03-18 11:51 | MHC.PC.OV ---
Vital Signs 03/18/25 11:56 Height 5 ft 3 in Weight 122 lb 8 oz BMI 21.7 BP 128/80 Blood Pressure Location Lt brachial Position Sitting Pulse 74 Pulse Source Pulse Oximeter Temp 98.5 F Temp Source Temporal Artery Scan Pulse Oximetry (%) 98 Oxygen Delivery Method Room Air Intake Visit Reasons: HTN med check Intake Note: Mandi presents in the office today for a hypertension follow up. Patient needs a refill of her citalopram. Allergies perfume Allergy (Verified 03/18/25 11:54) Rash Tobacco use date assessed: 03/18/25 Dental Screening Dental Screen Date: 03/18/25 Did you have a dental visit in the last 12 months?: Yes Did you have a dental problem in the last 6 months where you did not have access to dental care?: No Was dental information given to patient?: Patient has dentist HPI HPI Comments History of Present Illness Details This is a 69-year-old female with a past medical history of hyperlipidemia, hypertension and tobacco use presenting for follow up. Hypertension-taking Amlodipine 5 mg daily. Denies headaches, chest pain, dizziness or shortness of breath. Hyperlipidemia-treated with atorvastatin 20 mg daily. Reviewed lipid profile with her today which is favorable. Hypercalcemia-resolved. PTH and Vitamin d normal. Tobacco use-smokes 1-1/2 packs per day. She has gone through counseling groups, seen addiction Medicine and tried medications including Chantix which she currently has a home. She is not currently interested in quitting. We also discussed baseline chest x-ray and LDCT, but she is not interested in screening tests at this time. Patient had a DEXA scan in September or October 2024, and she was never told the results. This was done at [facility]. She endorses a history of osteoporosis. She will call them for the result. Last mammogram -normal October 2024. She had her last colonoscopy 01/11/2023 at [facility]. She says it was normal, and she was instructed to repeat it in 10 years. She had a flu shot in May 2024. She is up-to-date with COVID-19 vaccine, per patient. Patient reports she had a tetanus shot in 2017. She also says she is up-to-date with the shingles vaccine and pneumonia vaccine. The patient takes citalopram 20 mg daily for depression. This was started after she lost her . She feels stable on it and wants to continue it. Declines annual gynecologic exam. ROS: Constitutional: No unexplained weight loss, fever, chills, fatigue or night sweats. Eyes: No blurry vision, vision loss, double vision, eye pain, eye redness, eye discharge. Respiratory: No shortness of breath, cough or sputum production. Cardiovascular: No chest pain, chest pressure or chest discomfort. No palpitations or pedal edema. Gastrointestinal: No anorexia, nausea, vomiting or diarrhea. No abdominal pain or blood in stool. Neurologic: No headache, dizziness, syncope, unilateral weakness, ataxia, numbness or tingling in the extremities. No memory difficulties or changes to speech. Physical exam: Constitutional: Alert, in no distress. Neck: Supple, Full range of motion. No lymphadenopathy. Respiratory: Clear to auscultation. Cardiovascular: S1 S2 regular. No murmurs. No carotid bruits. Gastrointestinal: Abdomen soft, non-tender, non-distended. Normal bowel sounds. No palpable masses. Musculoskeletal: No gross deformities. Normal range of motion. Extremities: Warm and well perfused. No clubbing, cyanosis or edema. Psychiatric: Normal mood and affect [facility] Medical History (Updated 03/18/25 @ 22:15 by RIGOBERTO Eastman) Depression Osteoporosis Transient vision disturbance Tobacco use disorder Hyperlipidemia Hypertension Hypercalcemia Family History Father Substance abuse Alcoholism Maternal Uncle Alcoholism Social History (Updated 03/18/25 @ 11:56 by Emely Mccrary [place]) Housing: House Alcohol intake: current Patient Tobacco Use Status: Current everyday Tobacco user Tobacco use type: Cigarette Cigarette Packs Per Day: 2 Cigarettes Per Day: 30 Years Smoked: 50 e-Cigarette/Vaping Use: Never Used Second Hand Smoke Exposure: Yes service: No Current occupational status: retired Current occupational exposures/hazards: No Cognitive needs: No Hearing needs: No Vision needs: No Questionnaire Thrive Questionnaire Date Thrive assessed: 01/31/25 I am a: Patient What is your living situation today?: I have a steady place to live Within the past 12 months, did the food you bought not last and you didn't have the money to get more?: Never true Within the past 12 months, did you worry whether your food would run out before you got money to buy more?: Never true Do you have trouble paying for medicines?: No Do you have trouble getting transportation to medical appointments?: No Do you have trouble paying your heating and electricity bill?: No Do you have trouble taking care of your child, family member or friend?: No Do you have trouble with day-to-day activities such as bathing, preparing meals, shopping, managing finances, etc.?: No Are you currently unemployed and looking for a job?: No Are you interested in more education?: No Please select the resources that you would like help with: None Currently or been in a relationship where the following occur: No concerns reported THRIVE Score: 0 DUANE-7 AMB Questionnaire DUANE-7 Date DUANE - 7 assessed: 02/04/25 Source: Developed by Drs. Sonny Valentin, Shalonda Chung, Rodriguez Goldstein and colleagues, with an educational yani from [employer]. Physical exam (Primary Care) Vital Signs: Last Vital Signs Temp 98.5 F 03/18/25 11:56 Pulse 74 03/18/25 11:56 BP 128/80 03/18/25 11:56 Pulse Ox 98 03/18/25 11:56 Oxygen Delivery Method Room Air 03/18/25 11:56 BMI result Body Mass Index 21.7 Tobacco/Smoking Status: Tobacco use Status Tobacco use date assessed 03/18/25 03/18/25 11:59 Patient Tobacco Use Status Current everyday Tobacco 03/18/25 11:56 Tobacco use type Cigarette 03/18/25 11:56 e-Cigarette/Vaping Use Never Used 03/18/25 11:56 Thrive Assessment: Date of Thrive Assessment Date Thrive assessed 01/31/25 03/18/25 11:53 Currently or been in a relationship where the following occur: No concerns reported Coding Level of Care Code Est Pt Level 4 (42261) Complex EM visit Add On G2211 Diagnoses Hypercalcemia E83.52 Primary hypertension I10 Hypertension type: primary hypertension Pure hypercholesterolemia E78.00 Hyperlipidemia type: pure hypercholesterolemia Tobacco use disorder F17.200 Osteoporosis M81.0 Depression F32.A Depression Type: major depressive disorder Major depression recurrence: single episode Active/Remission status: currently active Assessment & Plan Assessment & Plan (1) Hypercalcemia: Code(s): E83.52 - Hypercalcemia Category: Medical Plan: Resolved. Normal PTH and Vitamin D. (2) Hypertension: Code(s): I10 - Essential (primary) hypertension Category: Medical Qualifiers: Hypertension type: primary hypertension Qualified Code(s): I10 - Essential (primary) hypertension Plan: Continue amlodipine at 5 mg daily. Recommended low-sodium diet and avoidance of caffeine. Smoking cessation advised. (3) Hyperlipidemia: Code(s): E78.5 - Hyperlipidemia, unspecified Category: Medical Qualifiers: Hyperlipidemia type: pure hypercholesterolemia Qualified Code(s): E78.00 - Pure hypercholesterolemia, unspecified Plan: Continue atorvastatin. LDL at goal <100. (4) Tobacco use disorder: Code(s): F17.200 - Nicotine dependence, unspecified, uncomplicated Category: Medical Plan: Reviewed the risks of tobacco use disorder. She is not interested in cessation at this time though she has attempted it multiple times in the past. She is not interested in baseline chest x-ray or LDCT. (5) Osteoporosis: Code(s): M81.0 - Age-related osteoporosis without current pathological fracture Category: Medical Plan: I have requested the results of her bone density exam. Smoking cessation advised. Continue weight-bearing activity. She walks her dog frequently. She is on calcium and vitamin-D. (6) Depression: Code(s): F32.A - Depression, unspecified Category: Medical Qualifiers: Depression Type: major depressive disorder Major depression recurrence: single episode Active/Remission status: currently active Plan: Stable. Continue citalopram. Plan Follow up in 6 months. Medications: New citalopram 20 mg PO DAILY 90 tabs 3RF
[2025-03-18 11:56] VITALS: BP 128/80; PULSE 74; TEMP 36.9; O2SAT 98; BMI 21.7
--- OUTSIDE RECORDS SUMMARY | 2025-03-18 12:27 | XMS_ITS | Encounter Summary ---
Author Organization [facility] Address [address] [place] [address] Care Team Providers Care Flight Information Expediter Name Role Phone ChildAlessandro MD Primary Care Provider [phone] Encounter Details Date Type Department Care Team (Late st Contact Info) Description 11/01/2022 Community Orders [facility] EpicCare Link [address] [place] [address] Child, Alessandro Gyu MD [address] [place] [address] [phone] (Work) Bilateral hip pain (Primary [...] of this encounter Results * Due to [place] state law, this organization might not be sharing negative HIV tests. * X-Ray Lumbar Spine 2 or 3 Views (11/01/2022 11:27 AM EST) Anatomical Region Laterality Modality Spine, L-spine Computed Radiogr aphy 11/02/2022 1:24 PM EST Impressions 11/02/2022 1:49 PM EST Lumbar spine: Severe left convex curvature. Moderate to severe multilevel degenerative disc disease and lower lumbar facet arthropathy. Osteopenia. Chronic appearing L1 superior endplate compression fracture. Pelvis/hips: Mild osteoarthritis of the hips. Mild degenerative arthropathy of the pubic symphysis and sacroiliac joints. No visible fracture. Unremarkable soft tissues. If this radiology report contains a blank impression section, it is an incomplete radiology report. Please contact the interpreting radiologist or applicable radiology division as soon as possible to obtain the completed interpretation. Workstation ID: [id number] Narrative 11/02/2022 1:49 PM EST COMPARISON: No pertinent prior studies available at time of dictation. FINDINGS AND Resulting Agency Comment [id number] Procedure Note Neville Yadav MD - 11/02/2022 [...] possible to obtain thecompleted interpretation. Workstation ID: [id number] us Alessandro Guy Child IMG XR PROCEDURES Final Resul t documented in this encounter Visit Diagnoses Diagnosis Bilateral hip pain- Primary Pain in joint, pelvic region and thigh Bilateral hip pain Pain in joint, pelvic region and thigh documented in this encounter Care Teams Flight Information Expediter Relationship Specialty Start Date End Date Alessandro Russo MD [phone] (Work) PCP - General 04/03/17 documented as of this encounter
== END 2025-03-18 12:26 | disposition home or self-care (01) ==
LOC: HO.HMCFM 11:50
PROVIDERS: PCP Physician Assistant Medical; Visit Provider Physician Assistant Medical
DX: E83.52 Hypercalcemia (principal); I10 Essential (primary) hypertension; E78.00 Pure hypercholesterolemia, unspecified; F17.200 Nicotine dependence, unspecified, uncomplicated; M81.0 Age-related osteoporosis without current pathological fracture; F32.A Depression, unspecified

== ENCOUNTER → 2025-03-18 11:49 | Outpatient (BNVA) | payer MEDICARE, SELFPAY | PROVIDERS: PCP Physician Assistant Medical; Visit Provider Physician Assistant Medical | DX: I10 Essential (primary) hypertension (principal); E83.52 Hypercalcemia; E78.5 Hyperlipidemia, unspecified; E78.00 Pure hypercholesterolemia, unspecified; F17.200 Nicotine dependence, unspecified, uncomplicated; M81.0 Age-related osteoporosis without current pathological fracture; F32.A Depression, unspecified | CPT/HCPCS: 99212 ==